=== PATIENT | male | born 2000 | race Caucasian/White ===

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

== ENCOUNTER 2021-10-05 22:28 | Emergency (ER) | payer MEDICAID, OTHER ==
[~2021-10-05] VITALS: Ht 170.2 cm; Wt 95.0 kg
[~2021-10-05 22:28] MED LIST: AMOX250C4 PO
[2021-10-05 22:38] VITALS: BP 122/85
[2021-10-05] MEDS ORDERED: AMOX250C4 PO (23:09)
== END 2021-10-05 23:17 | disposition home or self-care (01) ==
LOC: EMS 22:31
DX: J03.90 Acute tonsillitis, unspecified (principal); L08.9 Local infection of the skin and subcutaneous tissue, unspecified; F17.210 Nicotine dependence, cigarettes, uncomplicated; F12.90 Cannabis use, unspecified, uncomplicated
CPT/HCPCS: 99281; Z7502